=== PATIENT | female | born 1950 | race African-American/Black ===

== ENCOUNTER 2017-07-03 16:36 | Inpatient (IN) ==
[2017-07-03] MEDS ORDERED: ACETAMINOPHEN 500 MG TABLET PO STA (18:55)
[2017-07-03] MEDS ORDERED: ALBUTEROL/IPRATROPIUM 3 ML NEB RESP TX STA (20:03)
[2017-07-03] MEDS ORDERED: SODIUM CHLORIDE 0.9% 1,000 ML IV STA (20:03)
[2017-07-03] MEDS ORDERED: cefTRIAXone 1,000 MG in SODIUM CHLORIDE 0.9% 100 ML IV STA (20:03)
[2017-07-03] MEDS ORDERED: AZITHROMYCIN INJ 500 MG in SODIUM CHLORIDE 0.9% 250 ML IV STA (20:03)
[2017-07-03 20:43] LABS: Basophils % 0.2 % (0.0-0.8); Eosinophils % 0.1 % (0.00-10.9); Hematocrit 29.2 VOL% (35.7-47.0); Hemoglobin 9.7 GM/DL (12.0-16.0); Immature Granulocytes % 0.6 %; Immature Granulocytes Absolute 0.07 #; Lymphocytes # 0.6 10*3/uL (1.4-4.0); Lymphocytes % 5.6 % (21.3-54.2); Mean Corpuscular HGB Conc 33.2 GM/DL (32-36); Mean Corpuscular Hemoglobin 30 PG (27-34); Mean Platelet Volume 10.4 FL (9.6-12.0); Monocytes # 0.3 10*3/uL (0.11-0.8); Neutrophils # 9.8 10*3/uL (1.4-7.4); Neutrophils % 90.5 % (38.7-73.9); Platelet Count 293 T/CUMM (130-400); Red Blood Count 3.28 MC/CUMM (3.8-5.5); Red Cell Distribution Width 13.9 % (9.3-17.3); White Blood Count 10.8 T/CUMM (4-12)
[2017-07-03 21:11] LABS: Alanine Aminotransferase 71 U/L (13-56); Albumin 2.6 G/DL (3.4-5.0); Alkaline Phosphatase 130 U/L (45-117); Aspartate Amino Transferase 73 U/L (0-37); Blood Urea Nitrogen 13 MG/DL (7-18); Calcium 8.8 MG/DL (8.5-10.1); Glucose 113 MG/DL (74-106); Osmolality,Calculated 262.7 MOS/KG (273-304); Potassium 3.4 MMOL/L (3.5-5.1); Sodium 131 MMOL/L (136-145); Total Protein 9.1 G/DL (6.4-8.3); Troponin I Only < 0.015 NG/ML (0.00-0.045)
[2017-07-03] MEDS ORDERED: ONDANSETRON 4 MG/2 ML VIAL IV PRN (23:32)
[2017-07-03] MEDS ORDERED: ACETAMINOPHEN 325 MG TABLET PO PRN (23:32)
[2017-07-03] MEDS ORDERED: HYDROmorphone 2 MG/1 ML VIAL IV PRN (23:32)
[2017-07-04] MEDS ORDERED: ALBUTEROL/IPRATROPIUM 3 ML NEB RESP TX PRN (00:06)
[2017-07-04] MEDS ORDERED: KETOROLAC 30 MG/1 ML VIAL IV ONE (08:26)
[2017-07-04] MEDS ORDERED: DEXTROSE 50% 25 GM/50 ML VIAL IV PRN (08:33)
[2017-07-04] MEDS ORDERED: GLUCAGON 1 MG VIAL IM PRN (08:33)
[2017-07-04] MEDS ORDERED: [UNRECOGNIZED DRUG - OTHER] SL SCH (09:00)
[2017-07-04] MEDS: MELOXICAM 7.5 MG TABLET PO SCH (09:03)
[2017-07-04] MEDS: ESCITALOPRAM 10 MG TABLET PO SCH (09:03)
[2017-07-04] MEDS: MULTIVITAMIN (CENTRUM) TABLET PO SCH (09:03)
[2017-07-04] MEDS: POTASSIUM CHLORIDE 20 MEQ TABLET PO SCH (09:03)
[2017-07-04] MEDS: ATORVASTATIN 20 MG TABLET PO SCH (09:03)
[2017-07-04] MEDS: ENOXAPARIN 40 MG/0.4 ML SYRINGE SUBCUT SCH (09:04)
[2017-07-04] MEDS: LEVOFLOXACIN INJ 500 MG in PREMIX 1 EACH IV SCH (09:04)
[2017-07-04] MEDS: OMEGA 3 ACID ETHYL ESTERS 1 GM CAPSULE PO SCH (09:04)
[2017-07-05 06:08] LABS: Basophils % 0.6 % (0.0-0.8); Eosinophils # 0.1 10*3/uL (0.0-0.87); Eosinophils % 2.4 % (0.00-10.9); Hematocrit 28.9 VOL% (35.7-47.0); Hemoglobin 9.3 GM/DL (12.0-16.0); Immature Granulocytes % 0.9 %; Immature Granulocytes Absolute 0.03 #; Lymphocytes # 0.5 10*3/uL (1.4-4.0); Lymphocytes % 15.5 % (21.3-54.2); Mean Corpuscular HGB Conc 32.2 GM/DL (32-36); Mean Corpuscular Hemoglobin 29 PG (27-34); Mean Corpuscular Volume 89.8 FL (87-102); Mean Platelet Volume 10.2 FL (9.6-12.0); Monocytes # 0.2 10*3/uL (0.11-0.8); Monocytes % 5.1 % (1.7-12.7); Neutrophils # 2.5 10*3/uL (1.4-7.4); Neutrophils % 75.5 % (38.7-73.9); Platelet Count 281 T/CUMM (130-400); Red Blood Count 3.22 MC/CUMM (3.8-5.5); Red Cell Distribution Width 14.2 % (9.3-17.3); White Blood Count 3.4 T/CUMM (4-12)
[2017-07-05 06:28] LABS: Band Neutrophils 2 % (0-10); Eosinophils 2 % (0-10); Hypochromasia 1+; Lymphocytes 13 % (20-55); Segmented Neutrophils 80 % (50-85); Total Cells Counted 100
[2017-07-05 06:29] LABS: Microcytosis 1+; Platelet Estimate Normal
[2017-07-05 06:46] LABS: Albumin 2.3 G/DL (3.4-5.0); Bilirubin,Total 1.6 MG/DL (0.2-1.0); Calcium 8.8 MG/DL (8.5-10.1); Osmolality,Calculated 271.8 MOS/KG (273-304); Potassium 3.6 MMOL/L (3.5-5.1); Total Protein 7.8 G/DL (6.4-8.3)
[2017-07-05] MEDS ORDERED: KETOROLAC 30 MG/1 ML VIAL IM STA (08:36)
[2017-07-05] MEDS: LEVOFLOXACIN INJ 500 MG in PREMIX 1 EACH IV SCH (08:46)
[2017-07-05] MEDS: ENOXAPARIN 40 MG/0.4 ML SYRINGE SUBCUT SCH (08:46)
[2017-07-05] MEDS: ATORVASTATIN 20 MG TABLET PO SCH (08:47)
[2017-07-05] MEDS: POTASSIUM CHLORIDE 20 MEQ TABLET PO SCH (08:47)
[2017-07-05] MEDS: OMEGA 3 ACID ETHYL ESTERS 1 GM CAPSULE PO SCH (08:47)
[2017-07-05] MEDS: GLIMEPIRIDE 2 MG TABLET PO SCH (08:47)
[2017-07-05] MEDS: MELOXICAM 7.5 MG TABLET PO SCH (08:47)
[2017-07-05] MEDS: MULTIVITAMIN (CENTRUM) TABLET PO SCH (08:47)
[2017-07-05] MEDS: ESCITALOPRAM 10 MG TABLET PO SCH (08:47)
[2017-07-05] MEDS: LIDOCAINE 5% PATCH TRANSDERM SCH (08:52)
[2017-07-05] MEDS: BENZONATATE 100 MG CAPSULE PO PRN (08:53)
[2017-07-06] MEDS: POTASSIUM CHLORIDE 20 MEQ TABLET PO SCH (09:49)
[2017-07-06] MEDS: BENZONATATE 100 MG CAPSULE PO PRN (09:49)
[2017-07-06] MEDS: MULTIVITAMIN (CENTRUM) TABLET PO SCH (09:49)
[2017-07-06] MEDS: MELOXICAM 7.5 MG TABLET PO SCH (09:49)
[2017-07-06] MEDS: ATORVASTATIN 20 MG TABLET PO SCH (09:49)
[2017-07-06] MEDS: GLIMEPIRIDE 2 MG TABLET PO SCH (09:49)
[2017-07-06] MEDS: ESCITALOPRAM 10 MG TABLET PO SCH (09:49)
[2017-07-06] MEDS: LEVOFLOXACIN INJ 500 MG in PREMIX 1 EACH IV SCH (09:50)
[2017-07-06] MEDS: LIDOCAINE 5% PATCH TRANSDERM SCH (09:50)
[2017-07-06] MEDS: OMEGA 3 ACID ETHYL ESTERS 1 GM CAPSULE PO SCH (09:50)
[2017-07-06] MEDS: ENOXAPARIN 40 MG/0.4 ML SYRINGE SUBCUT SCH (09:50)
[2017-07-07 06:33] LABS: Basophils % 0.9 % (0.0-0.8); Eosinophils # 0.2 10*3/uL (0.0-0.87); Eosinophils % 3.4 % (0.00-10.9); Hematocrit 31.3 VOL% (35.7-47.0); Hemoglobin 10.3 GM/DL (12.0-16.0); Immature Granulocytes % 0.9 %; Immature Granulocytes Absolute 0.04 #; Lymphocytes # 0.8 10*3/uL (1.4-4.0); Lymphocytes % 17.6 % (21.3-54.2); Mean Corpuscular HGB Conc 32.9 GM/DL (32-36); Mean Corpuscular Hemoglobin 29 PG (27-34); Mean Corpuscular Volume 87.2 FL (87-102); Mean Platelet Volume 9.9 FL (9.6-12.0); Monocytes # 0.2 10*3/uL (0.11-0.8); Monocytes % 3.8 % (1.7-12.7); Neutrophils # 3.3 10*3/uL (1.4-7.4); Neutrophils % 73.4 % (38.7-73.9); Platelet Count 398 T/CUMM (130-400); Red Blood Count 3.59 MC/CUMM (3.8-5.5); Red Cell Distribution Width 14.2 % (9.3-17.3); White Blood Count 4.4 T/CUMM (4-12)
[2017-07-07 06:58] LABS: Hypochromasia 1+; Microcytosis 1+
[2017-07-07 06:59] LABS: Platelet Estimate Adequate
[2017-07-07 07:09] VITALS: BP 137/83
[2017-07-07 07:15] LABS: Albumin 2.6 G/DL (3.4-5.0); Bilirubin,Total 0.7 MG/DL (0.2-1.0); Osmolality,Calculated 274.7 MOS/KG (273-304); Potassium 3.8 MMOL/L (3.5-5.1); Total Protein 8.5 G/DL (6.4-8.3)
[2017-07-07] MEDS: GLIMEPIRIDE 2 MG TABLET PO SCH (09:22)
[2017-07-07] MEDS: LEVOFLOXACIN INJ 500 MG in PREMIX 1 EACH IV SCH (09:25)
[2017-07-07] MEDS: MULTIVITAMIN (CENTRUM) TABLET PO SCH (09:25)
[2017-07-07] MEDS: POTASSIUM CHLORIDE 20 MEQ TABLET PO SCH (09:25)
[2017-07-07] MEDS: LIDOCAINE 5% PATCH TRANSDERM SCH (09:26)
[2017-07-07] MEDS: ESCITALOPRAM 10 MG TABLET PO SCH (09:26)
[2017-07-07] MEDS: ENOXAPARIN 40 MG/0.4 ML SYRINGE SUBCUT SCH (09:27)
[2017-07-07] MEDS: ATORVASTATIN 20 MG TABLET PO SCH (09:27)
[2017-07-07] MEDS: OMEGA 3 ACID ETHYL ESTERS 1 GM CAPSULE PO SCH (09:27)
[2017-07-07] MEDS: MELOXICAM 7.5 MG TABLET PO SCH (09:27)
== END 2017-07-07 11:31 | disposition home or self-care (01) | DRG 195 ==
LOC: N.ED 16:36 → N.EDINP 23:32 → N.5E 07-04 00:49
PROVIDERS: ADMIT Internal Medicine; ATTEND Internal Medicine

== ENCOUNTER 2018-06-19 16:30 | Inpatient (IN) ==
[2018-06-19] MEDS ORDERED: HYDROmorphone 2 MG/1 ML VIAL IV PRN (16:47)
[2018-06-19] MEDS ORDERED: ONDANSETRON 4 MG/2 ML VIAL IV PRN ×2 (16:47→18:57)
[2018-06-19] MEDS ORDERED: SODIUM CHLORIDE 0.9% 1,000 ML IV SCH (17:00)
[2018-06-19 17:24] LABS: Basophils % 0.3 % (0.0-0.8); Eosinophils # 0.1 10*3/uL (0.0-0.87); Eosinophils % 0.9 % (0.00-10.9); Hematocrit 32.6 VOL% (35.7-47.0); Immature Granulocytes % 0.4 %; Immature Granulocytes Absolute 0.04 #; Lymphocytes # 0.8 10*3/uL (1.4-4.0); Lymphocytes % 8.2 % (21.3-54.2); Mean Corpuscular HGB Conc 30.7 GM/DL (32-36); Mean Corpuscular Hemoglobin 28 PG (27-34); Mean Corpuscular Volume 91.8 FL (87-102); Mean Platelet Volume 9.9 FL (9.6-12.0); Monocytes # 0.2 10*3/uL (0.11-0.8); Monocytes % 2.5 % (1.7-12.7); Neutrophils # 8.2 10*3/uL (1.4-7.4); Neutrophils % 87.7 % (38.7-73.9); Platelet Count 288 T/CUMM (130-400); Red Blood Count 3.55 MC/CUMM (3.8-5.5); Red Cell Distribution Width 16.1 % (9.3-17.3); White Blood Count 9.4 T/CUMM (4-12)
[2018-06-19 17:40] LABS: INR 0.9; PT Patient Result 10.1 SECS; Partial Thromboplastin Time 25.5 SECS (0-40)
[2018-06-19 17:44] LABS: Alanine Aminotransferase 28 U/L (13-56); Albumin 3.3 G/DL (3.4-5.0); Alkaline Phosphatase 124 U/L (45-117); Aspartate Amino Transferase 36 U/L (0-37); Bilirubin,Total < 0.39 MG/DL (0.2-1.0); Blood Urea Nitrogen 18 MG/DL (7-18); Calcium 8.9 MG/DL (8.5-10.1); Glucose 110 MG/DL (74-106); Osmolality,Calculated 272.1 MOS/KG (273-304); Potassium 3.6 MMOL/L (3.5-5.1); Sodium 135 MMOL/L (136-145); Total Protein 9.7 G/DL (6.4-8.3)
[2018-06-19] MEDS ORDERED: GLUCAGON 1 MG VIAL IM PRN (18:57)
[2018-06-19] MEDS ORDERED: ACETAMINOPHEN 325 MG TABLET PO PRN (18:57)
[2018-06-19] MEDS ORDERED: DEXTROSE 50% 25 GM/50 ML SYRINGE IV PRN (18:57)
[2018-06-19 19:06] LABS: Apearance,Urine CLEAR (Clear); Bacteria,Urine Occasional /HPF (Few); Bilirubin,Urine Negative (Negative); Blood, Urine Small mg/dL (Negative); Glucose,Urine (UA) Negative (Negative); Hyaline Casts,Urine 3 /LPF (0-3); Ketones,Urine Negative (Negative); Mucus,Urine Occasional /LPF (Occasional); Nitrite,Urine Negative (Negative); Protein,Urine Negative; RBC,Urine 2 /HPF (0-4); Squamous Epithelial Cell,Urine Occasional /HPF (0-10); Urine Color Straw (Yellow); Urine Specific Gravity 1.011 (1.001-1.035); Urine Urobilinogen < 2.0 EU/DL (0.2-1.0); WBC,Urine 5 /HPF (0-6)
[2018-06-19] MEDS: INSULIN LISPRO 100 UNIT/ML SUBCUT SCH (21:11)
[2018-06-19] MEDS: DOCUSATE SODIUM 100 MG CAPSULE PO SCH (21:13)
[2018-06-19] MEDS: HYDROmorphone 2 MG/1 ML VIAL IV PRN (23:26)
[2018-06-20] MEDS: INSULIN LISPRO 100 UNIT/ML SUBCUT SCH ×4 (07:30→21:25)
[2018-06-20] MEDS: HYDROmorphone 2 MG/1 ML VIAL IV PRN (07:52)
[2018-06-20] MEDS ORDERED: ceFAZolin 2,000 MG in PREMIX 1 EACH IV ONE (08:30)
[2018-06-20] MEDS ORDERED: FAMOTIDINE 20 MG TABLET PO ONE (08:31)
[2018-06-20] MEDS: DOCUSATE SODIUM 100 MG CAPSULE PO SCH ×2 (09:00→21:24)
[2018-06-20] MEDS: PANTOPRAZOLE 40 MG TABLET PO SCH (09:00)
[2018-06-20] MEDS: GLIMEPIRIDE 2 MG TABLET PO SCH (09:00)
[2018-06-20] MEDS ORDERED: MORPHINE 4 MG/1 ML VIAL IV PRN (10:16)
[2018-06-20] MEDS ORDERED: LACTULOSE 20 GM/30 ML UDCUP PO PRN (10:16)
[2018-06-20] MEDS ORDERED: diphenhydrAMINE CAP 25 MG CAPSULE PO PRN (10:16)
[2018-06-20] MEDS ORDERED: TEMAZEPAM 7.5 MG CAPSULE PO PRN (10:16)
[2018-06-20] MEDS ORDERED: MAGNESIUM HYDROXIDE SUSP 30 ML UDCUP PO PRN (10:16)
[2018-06-20] MEDS ORDERED: BISACODYL 10 MG SUPP RECTAL PRN (10:16)
[2018-06-20] MEDS ORDERED: PROMETHAZINE 25 MG/1 ML VIAL IM PRN (10:16)
[2018-06-20] MEDS: LACTATED RINGERS 1,000 ML IV SCH (10:30)
[2018-06-20] MEDS ORDERED: ACETAMINOPHEN 1,000 MG/100 ML VIAL IV ONE ×2 (10:47→11:58)
[2018-06-20] MEDS ORDERED: fentaNYL 100 MCG/2 ML VIAL ONE (11:57)
[2018-06-20] MEDS ORDERED: SEVOFLURANE 1 UNIT/15 MINUTE INH ONE (11:57)
[2018-06-20] MEDS ORDERED: BUPIVACAINE SPINAL 0.75% 2 ML AMP SPINAL ONE (11:57)
[2018-06-20] MEDS ORDERED: MIDAZOLAM 2 MG/2 ML VIAL ONE (11:57)
[2018-06-20] MEDS ORDERED: PROPOFOL 200 MG/20 ML VIAL IV ONE (11:57)
[2018-06-20] MEDS ORDERED: LACTATED RINGERS 1,000 ML IV ONE (11:58)
[2018-06-20] MEDS ORDERED: ePHEDrine 50 MG/ML AMP ONE (11:58)
[2018-06-20] MEDS ORDERED: ROCURONIUM 100 MG/10 ML VIAL IV ONE (11:58)
[2018-06-20] MEDS ORDERED: PHENYLEPHRINE 1 MG/10 ML SYRINGE IV ONE (11:58)
[2018-06-20] MEDS ORDERED: ONDANSETRON 4 MG/2 ML VIAL ONE (11:58)
[2018-06-20] MEDS ORDERED: NEOSTIGMINE 10 MG/10 ML VIAL ONE (11:59)
[2018-06-20] MEDS ORDERED: GLYCOPYRROLATE 0.4 MG/2 ML VIAL ONE (11:59)
[2018-06-20] MEDS: ceFAZolin 1,000 MG in SYRINGE 1 EACH IV SCH (15:22)
[2018-06-20] MEDS ORDERED: COBAMAMIDE SL SCH (21:00)
[2018-06-20] MEDS ORDERED: CYANOCOBALAMIN SL SCH (21:00)
[2018-06-20] MEDS: POTASSIUM CHLORIDE 20 MEQ TABLET PO SCH (21:24)
[2018-06-20] MEDS: OMEGA 3 ACID ETHYL ESTERS 1 GM CAPSULE PO SCH (21:24)
[2018-06-20] MEDS: MELOXICAM 7.5 MG TABLET PO SCH (21:24)
[2018-06-20] MEDS: amLODIPine 10 MG TABLET PO SCH (21:24)
[2018-06-20] MEDS: ESCITALOPRAM 10 MG TABLET PO SCH (21:25)
[2018-06-20] MEDS: MULTIVITAMIN (CENTRUM) TABLET PO SCH (21:25)
[2018-06-20] MEDS: BENAZEPRIL 40 MG TABLET PO SCH (21:28)
[2018-06-21] MEDS: ceFAZolin 1,000 MG in SYRINGE 1 EACH IV SCH (00:10)
[2018-06-21 05:21] LABS: Basophils % 0.5 % (0.0-0.8); Eosinophils # 0.1 10*3/uL (0.0-0.87); Eosinophils % 3.1 % (0.00-10.9); Hematocrit 27.7 VOL% (35.7-47.0); Hemoglobin 8.6 GM/DL (12.0-16.0); Immature Granulocytes % 0.5 %; Immature Granulocytes Absolute 0.02 #; Lymphocytes # 1.1 10*3/uL (1.4-4.0); Lymphocytes % 24.7 % (21.3-54.2); Mean Corpuscular Hemoglobin 29 PG (27-34); Mean Platelet Volume 10.2 FL (9.6-12.0); Monocytes # 0.3 10*3/uL (0.11-0.8); Monocytes % 6.6 % (1.7-12.7); Neutrophils # 2.8 10*3/uL (1.4-7.4); Neutrophils % 64.6 % (38.7-73.9); Platelet Count 253 T/CUMM (130-400); Red Blood Count 3.01 MC/CUMM (3.8-5.5); Red Cell Distribution Width 16.2 % (9.3-17.3); White Blood Count 4.3 T/CUMM (4-12)
[2018-06-21 05:22] LABS: Calcium 8.4 MG/DL (8.5-10.1); Osmolality,Calculated 269.2 MOS/KG (273-304); Potassium 4.5 MMOL/L (3.5-5.1)
[2018-06-21] MEDS: FONDAPARINUX 2.5 MG/0.5 ML SYRINGE SUBCUT SCH (07:20)
[2018-06-21] MEDS: LACTATED RINGERS 1,000 ML IV SCH (07:20)
[2018-06-21] MEDS: INSULIN LISPRO 100 UNIT/ML SUBCUT SCH ×4 (10:42→22:10)
[2018-06-21] MEDS: PANTOPRAZOLE 40 MG TABLET PO SCH (14:07)
[2018-06-21] MEDS: DOCUSATE SODIUM 100 MG CAPSULE PO SCH ×2 (14:07→20:42)
[2018-06-21] MEDS: GLIMEPIRIDE 2 MG TABLET PO SCH (14:15)
[2018-06-21] MEDS ORDERED: SODIUM CHLORIDE 0.9% 250 ML IV ONE (19:51)
[2018-06-21] MEDS ORDERED: SODIUM CHLORIDE 0.9% 1,000 ML IV PRN (19:52)
[2018-06-21] MEDS: SODIUM CHLORIDE 0.9% 1,000 ML IV SCH (20:35)
[2018-06-21] MEDS: ESCITALOPRAM 10 MG TABLET PO SCH (20:42)
[2018-06-21] MEDS: BENAZEPRIL 40 MG TABLET PO SCH ×2 (20:42→20:51)
[2018-06-21] MEDS: POTASSIUM CHLORIDE 20 MEQ TABLET PO SCH (20:42)
[2018-06-21] MEDS: MULTIVITAMIN (CENTRUM) TABLET PO SCH (20:43)
[2018-06-21] MEDS: MELOXICAM 7.5 MG TABLET PO SCH (20:43)
[2018-06-21] MEDS: OMEGA 3 ACID ETHYL ESTERS 1 GM CAPSULE PO SCH (20:43)
[2018-06-21] MEDS: amLODIPine 10 MG TABLET PO SCH (20:50)
[2018-06-22] MEDS: LACTATED RINGERS 1,000 ML IV SCH (02:15)
[2018-06-22] MEDS ORDERED: FUROSEMIDE 20 MG/2 ML VIAL IV ONE ×2 (02:30→03:00)
[2018-06-22 05:31] LABS: Calcium 8.6 MG/DL (8.5-10.1); Osmolality,Calculated 275.1 MOS/KG (273-304); Potassium 4.6 MMOL/L (3.5-5.1)
[2018-06-22] MEDS: FONDAPARINUX 2.5 MG/0.5 ML SYRINGE SUBCUT SCH (06:40)
[2018-06-22] MEDS: SODIUM CHLORIDE 0.9% 1,000 ML IV SCH (06:47)
[2018-06-22 07:26] LABS: Basophils % 0.4 % (0.0-0.8); Eosinophils # 0.1 10*3/uL (0.0-0.87); Eosinophils % 1.6 % (0.00-10.9); Hematocrit 32.8 VOL% (35.7-47.0); Immature Granulocytes % 0.4 %; Immature Granulocytes Absolute 0.02 #; Lymphocytes # 0.6 10*3/uL (1.4-4.0); Lymphocytes % 10.5 % (21.3-54.2); Mean Corpuscular Hemoglobin 29 PG (27-34); Mean Corpuscular Volume 90.1 FL (87-102); Monocytes # 0.3 10*3/uL (0.11-0.8); Monocytes % 4.9 % (1.7-12.7); Neutrophils # 4.7 10*3/uL (1.4-7.4); Neutrophils % 82.2 % (38.7-73.9); Platelet Count 219 T/CUMM (130-400); Red Blood Count 3.64 MC/CUMM (3.8-5.5); Red Cell Distribution Width 15.9 % (9.3-17.3); White Blood Count 5.7 T/CUMM (4-12)
[2018-06-22 07:44] LABS: Hemoglobin 10.5 GM/DL (12.0-16.0)
[2018-06-22] MEDS: INSULIN LISPRO 100 UNIT/ML SUBCUT SCH ×2 (08:46→12:04)
[2018-06-22] MEDS: DOCUSATE SODIUM 100 MG CAPSULE PO SCH (08:54)
[2018-06-22] MEDS: PANTOPRAZOLE 40 MG TABLET PO SCH (08:54)
[2018-06-22] MEDS: GLIMEPIRIDE 2 MG TABLET PO SCH (08:55)
[2018-06-22 11:50] VITALS: BP 92/61
== END 2018-06-22 14:00 | disposition swing bed (61) | DRG 470 ==
LOC: EDBD → EDUNIT# → N.ED 16:30 → N.EDINP 17:01 → N.3E 18:55
PROVIDERS: ADMIT Internal Medicine; ATTEND Internal Medicine